=== PATIENT | male | born 1945 | race Caucasian/White ===

== ENCOUNTER 2018-06-02 10:01 | Observation (INO) | payer MEDICARE ==
[~2018-06-02] VITALS: Ht 188 cm; Wt 91.9 kg
[2018-06-02] MEDS ORDERED: GABA300C10 PO (10:38)
[2018-06-02] MEDS ORDERED: FINA5TAB4 PO (10:38)
[2018-06-02] MEDS ORDERED: CARV6.252 PO (10:38)
[2018-06-02] MEDS ORDERED: ROSU40TA PO (10:38)
[2018-06-02] MEDS ORDERED: ASPI-621 PO (10:38)
[2018-06-02] MEDS ORDERED: DOXA8TAB63 PO (10:38)
[2018-06-02] MEDS ORDERED: FURO20TA3 PO (10:38)
[2018-06-02] MEDS ORDERED: WARF2TAB99 PO (10:38)
[2018-06-02] MEDS ORDERED: LATA7.5D EACHEYE (10:38)
[2018-06-02] MEDS ORDERED: NITR0.4T28 SL (10:38)
[2018-06-02] MEDS ORDERED: POTA10CA PO (10:38)
[2018-06-02 10:57] LABS: INTERNATIONAL NORMALIZED RATIO 1.91 (0.93-1.1); PROTHROMBIN TIME 19.4 Seconds (9.6-11.5)
[2018-06-02] MEDS: SODIUM CHLORIDE 0.9% 1,000 ML IV SCH ×2 (11:00→19:00)
[2018-06-02] MEDS ORDERED: FENTANYL PF 100 MCG/2ML ONE (11:36)
[2018-06-02] MEDS ORDERED: MIDAZOLAM 1 MG/ML, 5ML ONE (11:36)
[2018-06-02] MEDS ORDERED: LIDOCAINE-MPF 1%, 5ML ONE (11:37)
[2018-06-02] MEDS ORDERED: CEFAZOLIN 1,000 MG ONE (11:37)
[2018-06-02] MEDS ORDERED: CEFAZOLIN PMX 1GM/50ML 50 ML ONE (11:37)
[2018-06-02] MEDS ORDERED: DIPHENHYDRAMINE 50 MG/ML, 1ML ONE (12:04)
[2018-06-02] MEDS ORDERED: ZOLPIDEM 5MG TABLET PO PRN (13:00)
[2018-06-02] MEDS ORDERED: HOLD MEDICATION MC PRN (13:00)
[2018-06-02] MEDS ORDERED: NITROGLYCERIN 0.4 MG BOTTLE (25 TABS) SL PRN (13:00)
[2018-06-02] MEDS ORDERED: HYDROcodone/APAP 5/325 TABLET PO PRN (13:00)
[2018-06-02] MEDS ORDERED: ACETAMINOPHEN 325 MG TABLET PO PRN (13:00)
[2018-06-02] MEDS ORDERED: ONDANSETRON 2MG/ML, 2ML IV PRN (13:00)
[2018-06-02] MEDS: FUROSEMIDE 20 MG TABLET PO SCH ×2 (15:49→20:25)
[2018-06-02] MEDS: DOXAZOSIN 2MG TABLET PO SCH ×2 (15:49→17:53)
[2018-06-02 15:50] VITALS: BP 100/61
[2018-06-02 17:00] VITALS: BP 110/72
[2018-06-02] MEDS: CARVEDILOL 6.25 MG TABLET PO SCH (17:53)
[2018-06-02 19:48] VITALS: BP 98/64
[2018-06-02] MEDS ORDERED: POTASSIUM CHLORIDE 10 MEQ TABLET.ER ONE (20:27)
[2018-06-02] MEDS: SODIUM CHLORIDE FLUSH 10ML SYR IVF SCH (20:28)
[2018-06-02] MEDS: GABAPENTIN 300 MG CAPSULE PO SCH (20:28)
[2018-06-02] MEDS: POTASSIUM CHLORIDE 10 MEQ TABLET.ER PO SCH (20:28)
[2018-06-02] MEDS: CEFAZOLIN PMX 1GM/50ML 50 ML IVPB SCH (20:28)
[2018-06-02] MEDS ORDERED: ATORVASTATIN 80 MG TABLET PO SCH (21:00)
[2018-06-02] MEDS ORDERED: LATANOPROST OPHTH 0.005%, 2.5ML EACHEYE SCH (21:00)
[2018-06-02 21:34] VITALS: BP 95/57
[2018-06-02] MEDS: FINASTERIDE 5 MG TABLET PO SCH (23:49)
[2018-06-03] MEDS: SODIUM CHLORIDE 0.9% 1,000 ML IV SCH ×2 (03:00→09:31)
[2018-06-03 05:12] VITALS: BP 92/53
[2018-06-03] MEDS: CARVEDILOL 6.25 MG TABLET PO SCH (05:15)
[2018-06-03] MEDS: CEFAZOLIN PMX 1GM/50ML 50 ML IVPB SCH (05:15)
[2018-06-03 08:01] VITALS: BP 95/57
[2018-06-03] MEDS ORDERED: ACET325T14 PO (08:37)
[2018-06-03] MEDS: POTASSIUM CHLORIDE 10 MEQ TABLET.ER PO SCH (09:00)
[2018-06-03] MEDS: GABAPENTIN 300 MG CAPSULE PO SCH (09:00)
[2018-06-03] MEDS ORDERED: ASPIRIN 81 MG TABLET EC PO SCH (09:00)
[2018-06-03] MEDS ORDERED: POTASSIUM CHLORIDE 10 MEQ TABLET.ER PO SCH (09:00)
[2018-06-03] MEDS: SODIUM CHLORIDE FLUSH 10ML SYR IVF SCH (09:00)
[2018-06-03] MEDS ORDERED: FINASTERIDE 5 MG TABLET PO SCH (09:00)
[2018-06-03] MEDS: FINASTERIDE 5 MG TABLET PO SCH (09:00)
[2018-06-03] MEDS: FUROSEMIDE 20 MG TABLET PO SCH (09:00)
== END 2018-06-03 10:42 | disposition home or self-care (01) ==
LOC: CACL 10:01 → ORIP 12:53 → 5SO 13:57 → DCLOUNGE 06-03 10:31
PROVIDERS: ADMIT Internal Medicine Cardiovascular Disease; ATTEND Internal Medicine Cardiovascular Disease
DX: I25.5 Ischemic cardiomyopathy (principal); I50.22 Chronic systolic (congestive) heart failure; I48.91 Unspecified atrial fibrillation; I11.0 Hypertensive heart disease with heart failure; E78.5 Hyperlipidemia, unspecified
CPT/HCPCS: 33249; 36415; 71045; 85610; 96365; 96366; 99156; 99157; C1722; C1892; C1895; G0378; J0690; J1200; J2250; J3010